=== PATIENT | female | born 1990 | race Caucasian/White ===

== ENCOUNTER 2017-11-06 09:13 | Emergency (ER) | payer MEDICAID ==
[2016-05-16 09:05] VITALS: BMI 27.9
[~2017-11-06 09:13] MED LIST: CYCLOBENZAPRINE10 MG PO; CYCLOBENZAPRINE5 MG PO; IBUPROFEN600 MG PO; NORCO 7.5/325 T1 TA1 PO; PERCOCET 5-3251 TAB PO; PRENAVITE1 TAB PO; TUMS500 MG PO
[2017-11-06 10:04] LABS: BASOPHILS 0.3 % (0-2); EOSINOPHILS 1.8 % (0-7); HEMATOCRIT 42.9 % (36.0-48.0); HEMOGLOBIN 14.4 g/dL (12-16); IMMATURE GRANULOCYTES 0.2 % (0-5); LYMPHOCYTES 32.1 % (15-50); MCH 30.3 pg (26.0-34.0); MCHC 33.6 g/dL (31.0-37.0); MCV 90.1 fL (80.0-100.0); MEAN PLATELET VOLUME 8.8 fL (7.4-10.4); MONOCYTES 4.5 % (2-11); NEUTROPHILS 61.1 % (40-80); RBC 4.76 10x6/uL (4.00-5.40); RDW 13.9 % (11.5-14.5); WBC 10.8 10x3/uL (4.8-10.8)
[2017-11-06 10:07] LABS: PLATELET COUNT 248 10x3/uL (130-400)
[2017-11-06 10:22] LABS: ALBUMIN 3.8 g/dL (3.4-5.0); ALKALINE PHOSPHATASE 85 U/L (46-116); ALT (SGPT) 28 U/L (10-68); CALC OSMOLALITY 276 mosm/kg (275-300); CALCIUM 8.9 mg/dL (8.5-10.1); CARBON DIOXIDE 25.5 mmol/L (21.0-32.0); CHLORIDE - SERUM 105 mmol/L (98-107); CREATININE - SERUM 0.7 mg/dL (0.6-1.3); GLUCOSE 80 mg/dL (74-106); POTASSIUM - SERUM 4.1 mmol/L (3.5-5.1); PROTEIN - SERUM 7.2 g/dL (6.4-8.2); SODIUM 139 mmol/L (136-145); UREA NITROGEN 13 mg/dL (7-18); eGFR NON AFRICAN AMERICAN > 90 mL/min (90-120)
[2017-11-06 10:30] LABS: CREATINE KINASE 61 UL (21-215)
[2017-11-06 10:34] LABS: TROPONIN-I < 0.017 ng/mL (0.000-0.060)
[2017-11-06 11:25] LABS: HCG URINE NEGATIVE (NEGATIVE)
== END 2017-11-06 15:30 | disposition home or self-care (01) ==
LOC: D.ER 09:13
PROVIDERS: Emergency Medicine; Nurse Practitioner Family
DX: R09.1 Pleurisy (principal); J06.9 Acute upper respiratory infection, unspecified

== ENCOUNTER 2018-09-09 12:34 | Emergency (ER) | payer MEDICAID ==
[~2018-09-09] VITALS: Ht 160 cm; Wt 63.6 kg
[2018-09-09 12:56] VITALS: Ht 160 cm; Wt 63.6 kg
[2018-09-09] MEDS ORDERED: VIBRAMYCIN50 MG PO (12:58)
[2018-09-09] MEDS ORDERED: ULTRAM50 MG PO (12:58)
[2018-09-09 13:53] LABS: BASOPHILS 0.2 % (0-2); EOSINOPHILS 1.8 % (0-7); HEMATOCRIT 41.2 % (36.0-48.0); HEMOGLOBIN 13.9 g/dL (12-16); IMMATURE GRANULOCYTES 0.3 % (0-5); LYMPHOCYTES 36.4 % (15-50); MCH 30.3 pg (26.0-34.0); MCHC 33.7 g/dL (31.0-37.0); MCV 89.8 fL (80.0-100.0); MEAN PLATELET VOLUME 8.9 fL (7.4-10.4); MONOCYTES 4.9 % (2-11); NEUTROPHILS 56.4 % (40-80); PLATELET COUNT 268 10x3/uL (130-400); RBC 4.59 10x6/uL (4.00-5.40); RDW 14.4 % (11.5-14.5); WBC 10.6 10x3/uL (4.8-10.8)
[2018-09-09 14:02] LABS: APTT 33.2 SECONDS (22.8-39.4); INR 1.08 (0.85-1.17); PROTIME 13.5 SECONDS (11.6-15.0)
[2018-09-09 14:02] LABS: APPEARANCE CLEAR (CLEAR); BILIRUBIN NEGATIVE (NEGATIVE); COLOR YELLOW (YELLOW); GLUCOSE NEGATIVE (NEGATIVE); KETONE NEGATIVE (NEGATIVE); NITRITE NEGATIVE (NEGATIVE); PROTEIN NEGATIVE (NEGATIVE); UROBILINOGEN NORMAL (NORMAL)
[2018-09-09 14:09] LABS: ALBUMIN 3.7 g/dL (3.4-5.0); ALKALINE PHOSPHATASE 81 U/L (46-116); ALT (SGPT) 16 U/L (10-68); BILIRUBIN - TOTAL 0.39 mg/dL (0.2-1.3); CALC OSMOLALITY 279 mosm/kg (275-300); CALCIUM 8.6 mg/dL (8.5-10.1); CARBON DIOXIDE 26.1 mmol/L (21.0-32.0); CHLORIDE - SERUM 106 mmol/L (98-107); CREATININE - SERUM 0.7 mg/dL (0.6-1.3); GLUCOSE 83 mg/dL (74-106); POTASSIUM - SERUM 3.7 mmol/L (3.5-5.1); PROTEIN - SERUM 6.9 g/dL (6.4-8.2); SODIUM 142 mmol/L (136-145); UREA NITROGEN 7 mg/dL (7-18); eGFR NON AFRICAN AMERICAN > 90 mL/min (90-120)
[2018-09-09] MEDS ORDERED: TYLENOL W/CODEI1 TAB PO (18:34)
[2018-09-09] MEDS ORDERED: NAPROSYN500 MG PO (18:34)
[2018-09-09 18:54] VITALS: BP 104/67
== END 2018-09-09 18:56 | disposition home or self-care (01) ==
LOC: D.ER 12:34
PROVIDERS: Family Medicine
DX: N83.202 Unspecified ovarian cyst, left side (principal); R10.30 Lower abdominal pain, unspecified

== ENCOUNTER → 2018-09-11 15:02 | Outpatient (CLI) | payer MEDICAID ==
[2018-09-09 12:56] VITALS: BMI 24.8
[~2018-09-11 15:02] MED LIST changes: +NAPROSYN500 MG PO; +TYLENOL W/CODEI1 TAB PO; +ULTRAM50 MG PO; +VIBRAMYCIN50 MG PO
== END | disposition home or self-care (01) ==
LOC: D.CT 15:02
DX: R10.813 Right lower quadrant abdominal tenderness (principal)

== ENCOUNTER 2018-10-06 09:14 | Emergency (ER) | payer MEDICAID ==
[~2018-10-06] VITALS: Ht 160 cm; Wt 62.7 kg
[2018-10-06 09:17] VITALS: Ht 160 cm; Wt 62.7 kg
[2018-10-06 09:47] LABS: BASOPHILS 0.2 % (0-2); EOSINOPHILS 0.9 % (0-7); HEMATOCRIT 41.4 % (36.0-48.0); HEMOGLOBIN 14.1 g/dL (12-16); IMMATURE GRANULOCYTES 0.4 % (0-5); LYMPHOCYTES 23.3 % (15-50); MCH 30.9 pg (26.0-34.0); MCHC 34.1 g/dL (31.0-37.0); MCV 90.8 fL (80.0-100.0); MEAN PLATELET VOLUME 9.1 fL (7.4-10.4); MONOCYTES 6.8 % (2-11); NEUTROPHILS 68.4 % (40-80); PLATELET COUNT 270 10x3/uL (130-400); RBC 4.56 10x6/uL (4.00-5.40); RDW 14.7 % (11.5-14.5); WBC 13.4 10x3/uL (4.8-10.8)
[2018-10-06 09:48] LABS: APPEARANCE CLEAR (CLEAR); BILIRUBIN NEGATIVE (NEGATIVE); COLOR YELLOW (YELLOW); GLUCOSE NEGATIVE (NEGATIVE); KETONE NEGATIVE (NEGATIVE); NITRITE NEGATIVE (NEGATIVE); PROTEIN NEGATIVE (NEGATIVE); UROBILINOGEN NORMAL (NORMAL)
[2018-10-06 09:52] LABS: ALBUMIN 3.6 g/dL (3.4-5.0); ALKALINE PHOSPHATASE 73 U/L (46-116); ALT (SGPT) 18 U/L (10-68); BILIRUBIN - TOTAL 0.25 mg/dL (0.2-1.3); CALC OSMOLALITY 276 mosm/kg (275-300); CALCIUM 8.6 mg/dL (8.5-10.1); CARBON DIOXIDE 24.1 mmol/L (21.0-32.0); CHLORIDE - SERUM 105 mmol/L (98-107); CREATININE - SERUM 0.7 mg/dL (0.6-1.3); GLUCOSE 93 mg/dL (74-106); POTASSIUM - SERUM 3.6 mmol/L (3.5-5.1); SODIUM 140 mmol/L (136-145); UREA NITROGEN 7 mg/dL (7-18); eGFR NON AFRICAN AMERICAN > 90 mL/min (90-120)
[2018-10-06 11:07] LABS: HCG SERUM NEGATIVE (NEGATIVE)
[2018-10-06] MEDS ORDERED: ULTRAM50 MG PO (14:38)
[2018-10-06 15:15] VITALS: BP 128/74
== END 2018-10-06 15:17 | disposition home or self-care (01) ==
LOC: D.ER 09:14
PROVIDERS: Family Medicine
DX: N83.209 Unspecified ovarian cyst, unspecified side (principal)

== ENCOUNTER 2020-01-24 22:59 | Emergency (ER) | payer OTHER ==
[~2020-01-24] VITALS: Ht 160 cm; Wt 58.2 kg
[2020-01-24 23:02] VITALS: Ht 160 cm; Wt 58.2 kg
[2020-01-24] MEDS ORDERED: CELEBREX50 MG (23:09)
[2020-01-24 23:36] LABS: HCG URINE NEGATIVE (NEGATIVE)
[2020-01-25] MEDS ORDERED: HYDROCODON-ACE1 EAC7 PO (00:31)
[2020-01-25 01:20] VITALS: BP 134/82
== END 2020-01-25 01:22 | disposition home or self-care (01) ==
LOC: D.ER 22:59
PROVIDERS: Emergency Medicine
DX: S43.109A Unspecified dislocation of unspecified acromioclavicular joint, initial encounter (principal); S16.1XXA Strain of muscle, fascia and tendon at neck level, initial encounter; S70.12XA Contusion of left thigh, initial encounter; S20.211A Contusion of right front wall of thorax, initial encounter; S00.03XA Contusion of scalp, initial encounter; S09.93XA Unspecified injury of face, initial encounter; Y04.8XXA Assault by other bodily force, initial encounter; Y93.9 Activity, unspecified; Y92.9 Unspecified place or not applicable; R11.0 Nausea; R42 Dizziness and giddiness

== ENCOUNTER 2020-04-30 22:11 | Emergency (ER) | payer OTHER ==
[~2020-04-30] VITALS: Ht 160 cm; Wt 60.0 kg
[~2020-04-30 22:11] MED LIST changes: +CELEBREX50 MG; +HYDROCODON-ACE1 EAC7 PO
[2020-04-30 22:15] VITALS: Ht 160 cm; Wt 60.0 kg
[2020-04-30] MEDS ORDERED: COLCRYS0.6 MG PO (22:19)
[2020-04-30] MEDS ORDERED: CYMBALTA20 MG PO (22:20)
[2020-04-30] MEDS ORDERED: KLONOPIN0.5 MG PO (22:20)
[2020-04-30 22:44] LABS: HCG URINE NEGATIVE (NEGATIVE)
[2020-05-01 00:24] VITALS: BP 122/77
== END 2020-05-01 00:24 | disposition home or self-care (01) ==
LOC: D.ER 22:11
PROVIDERS: Family Medicine
DX: R51 Headache (principal); Y04.2XXA Assault by strike against or bumped into by another person, initial encounter; Y93.9 Activity, unspecified; Y92.9 Unspecified place or not applicable

== ENCOUNTER 2020-05-13 02:16 | Emergency (ER) | payer OTHER ==
[~2020-05-13] VITALS: Ht 160 cm; Wt 59.9 kg
[~2020-05-13 02:16] MED LIST changes: +COLCRYS0.6 MG PO; +CYMBALTA20 MG PO; +KLONOPIN0.5 MG PO
[2020-05-13 02:17] VITALS: BP 118/82; Ht 160 cm; Wt 59.9 kg
[2020-05-13 02:28] LABS: BASOPHILS 0.1 % (0-2); EOSINOPHILS 0.3 % (0-7); HEMOGLOBIN 15.1 g/dL (12-16); IMMATURE GRANULOCYTES 0.4 % (0-5); LYMPHOCYTES 20.5 % (15-50); MCH 30.6 pg (26.0-34.0); MCHC 33.6 g/dL (31.0-37.0); MCV 91.1 fL (80.0-100.0); MEAN PLATELET VOLUME 8.4 fL (7.4-10.4); MONOCYTES 5.1 % (2-11); NEUTROPHILS 73.6 % (40-80); PLATELET COUNT 320 10x3/uL (130-400); RBC 4.94 10x6/uL (4.00-5.40); RDW 14.5 % (11.5-14.5); WBC 15.2 10x3/uL (4.8-10.8)
[2020-05-13 02:40] LABS: ANION GAP 14.5 mmol/L (8-16); CALCIUM 8.8 mg/dL (8.5-10.1); CARBON DIOXIDE 24.2 mmol/L (21.0-32.0); CREATININE - SERUM 1.1 mg/dL (0.6-1.3); POTASSIUM - SERUM 3.7 mmol/L (3.5-5.1)
[2020-05-13 02:46] LABS: ALBUMIN 4.1 g/dL (3.4-5.0); BILIRUBIN - TOTAL 0.2 mg/dL (0.2-1.3); PROTEIN - SERUM 7.6 g/dL (6.4-8.2)
[2020-05-13 02:50] LABS: HCG SERUM NEGATIVE (NEGATIVE)
[2020-05-13 02:51] LABS: BILIRUBIN NEGATIVE (NEGATIVE); KETONE NEGATIVE (NEGATIVE); NITRITE POSITIVE (NEGATIVE); UROBILINOGEN NORMAL mg/dL (< 2)
[2020-05-13 02:53] LABS: BACTERIA MODERATE /HPF (NONE SEEN); EPITHELIAL CELLS 0-5 /hpf (0-5); WHITE CELLS - URINE 0-5 /HPF (0-4)
[2020-05-13 02:56] LABS: UDS - AMPHET NEGATIVE QUAL (NEGATIVE); UDS - BARB NEGATIVE QUAL (NEGATIVE); UDS - BENZO POSITIVE QUAL (NEGATIVE); UDS - COCAINE NEGATIVE QUAL (NEGATIVE); UDS - OPIATE NEGATIVE QUAL (NEGATIVE); UDS - PCP NEGATIVE QUAL (NEGATIVE); UDS - THC NEGATIVE QUAL (NEGATIVE)
== END 2020-05-13 03:00 | disposition left against medical advice (07) ==
LOC: D.ER 02:16
PROVIDERS: Family Medicine
DX: R51 Headache (principal); Y04.2XXA Assault by strike against or bumped into by another person, initial encounter; Y93.9 Activity, unspecified; Y92.9 Unspecified place or not applicable; Z53.29 Procedure and treatment not carried out because of patient's decision for other reasons

== ENCOUNTER 2020-05-13 03:15 | Emergency (ER) | payer OTHER ==
[~2020-05-13] VITALS: Ht 160 cm; Wt 59.1 kg
[2020-05-13 03:22] VITALS: Ht 160 cm; Wt 59.1 kg
[2020-05-13 04:00] VITALS: BP 105/67
== END 2020-05-13 04:44 | disposition home or self-care (01) ==
LOC: D.ER 03:15
DX: F07.81 Postconcussional syndrome (principal); S00.33XA Contusion of nose, initial encounter; R55 Syncope and collapse; R51 Headache; J34.89 Other specified disorders of nose and nasal sinuses

== ENCOUNTER 2020-05-13 23:18 | Emergency (ER) | payer OTHER ==
[~2020-05-13] VITALS: Ht 160 cm; Wt 60.0 kg
[2020-05-13 23:30] VITALS: BP 127/93; Ht 160 cm; Wt 60.0 kg
== END 2020-05-14 01:52 | disposition home or self-care (01) ==
LOC: D.ER 23:18
DX: S00.83XA Contusion of other part of head, initial encounter (principal); F07.81 Postconcussional syndrome; Y04.8XXA Assault by other bodily force, initial encounter; Y93.9 Activity, unspecified; Y92.9 Unspecified place or not applicable; R51 Headache

== ENCOUNTER 2021-01-12 12:40 | Emergency (ER) | payer MEDICAID ==
[~2021-01-12] VITALS: Ht 162.6 cm; Wt 63.6 kg
[~2021-01-12 12:40] MED LIST changes: +METHOCARBAMOL500 MG PO; +VOLTAREN75 MG PO; +ZANAFLEX4 MG PO
[2021-01-12 12:50] VITALS: BP 132/69; Ht 162.6 cm; Wt 63.6 kg
[2021-01-12] MEDS ORDERED: PRENAVITE1 TAB PO (12:54)
[2021-01-12 13:16] LABS: BASOPHILS 0.2 % (0-2); EOSINOPHILS 1.1 % (0-7); HEMATOCRIT 38.4 % (36.0-48.0); HEMOGLOBIN 13.1 g/dL (12-16); IMMATURE GRANULOCYTES 0.3 % (0-5); LYMPHOCYTE ABS# 2.97 10x3/uL (1.18-3.74); LYMPHOCYTES 22.1 % (15-50); MCH 30.3 pg (26.0-34.0); MCHC 34.1 g/dL (31.0-37.0); MCV 88.9 fL (80.0-100.0); MEAN PLATELET VOLUME 8.9 fL (7.4-10.4); MONOCYTES 4.1 % (2-11); NEUTROPHIL ABS# 9.71 10x3/uL (1.56-6.13); NEUTROPHILS 72.2 % (40-80); PLATELET COUNT 302 10x3/uL (130-400); RBC 4.32 10x6/uL (4.00-5.40); RDW 14.1 % (11.5-14.5); WBC 13.5 10x3/uL (4.8-10.8)
[2021-01-12 13:26] LABS: CALC OSMOLALITY 267 mosm/kg (275-300); CALCIUM 9.5 mg/dL (8.5-10.1); CHLORIDE - SERUM 103 mmol/L (98-107); CREATININE - SERUM 0.7 mg/dL (0.6-1.3); GLUCOSE 91 mg/dL (74-106); POTASSIUM - SERUM 3.1 mmol/L (3.5-5.1); SODIUM 135 mmol/L (136-145); UREA NITROGEN 7 mg/dL (7-18); eGFR NON AFRICAN AMERICAN > 90 mL/min (90-120)
[2021-01-12 13:30] LABS: HCG SERUM POSITIVE (NEGATIVE)
[2021-01-12 13:36] LABS: BACTERIA MODERATE HPF (NONE SEEN); BILIRUBIN NEGATIVE (NEGATIVE); KETONE NEGATIVE (NEGATIVE); NITRITE NEGATIVE (NEGATIVE); UROBILINOGEN NORMAL mg/dL (< 2); WHITE CELLS - URINE 0-5 HPF (0-4)
[2021-01-12 13:37] LABS: SQUAMOUS EPITHELIAL 0-5 HPF (0-4)
[2021-01-12 13:53] LABS: ALBUMIN 3.4 g/dL (3.4-5.0); ALKALINE PHOSPHATASE 92 U/L (30-120); ALT (SGPT) 19 U/L (10-68); BILIRUBIN - TOTAL 0.23 mg/dL (0.2-1.3); HCG - QUANTITATIVE (MATERNAL) 71692 mIU/mL; PROTEIN - SERUM 7.5 g/dL (6.4-8.2)
[2021-01-12] MEDS ORDERED: MACROBID100 MG PO (15:03)
== END 2021-01-12 15:26 | disposition home or self-care (01) ==
LOC: D.ER 12:40
PROVIDERS: Family Medicine
DX: O23.41 Unspecified infection of urinary tract in pregnancy, first trimester (principal); Z3A.10 10 weeks gestation of pregnancy; E87.6 Hypokalemia; O43.891 Other placental disorders, first trimester

== ENCOUNTER 2021-02-17 21:59 | Emergency (ER) | payer MEDICAID ==
[~2021-02-17] VITALS: Ht 162.6 cm; Wt 66.2 kg
[~2021-02-17 21:59] MED LIST changes: +MACROBID100 MG PO
[2021-02-17 22:20] VITALS: BP 121/78; Ht 162.6 cm; Wt 66.2 kg
== END 2021-02-17 23:10 | disposition left against medical advice (07) ==
LOC: D.ER 21:59
DX: O46.8X2 Other antepartum hemorrhage, second trimester (principal); Z3A.16 16 weeks gestation of pregnancy; Z53.21 Procedure and treatment not carried out due to patient leaving prior to being seen by health care provider